=== PATIENT | female | born 1970 | race Caucasian/White ===

== ENCOUNTER 2021-06-30 17:05 | Emergency (ER) | payer OTHER ==
[2021-06-30] MEDS ORDERED: Cyclobenzaprine 10 MG TAB ONE (18:05)
[2021-06-30] MEDS ORDERED: Ketorolac Tromethamine 30 MG/ML VIAL ONE (18:05)
[2021-06-30] MEDS ORDERED: HYDROcodone/Acetaminophen 5/325 mg Tablet ONE (19:12)
[2021-06-30] MEDS ORDERED: Ondansetron ODT 4 MG TAB ONE (20:01)
== END 2021-06-30 19:49 | disposition home or self-care (01) ==
LOC: CSHERS 17:05
DX: M62.838 Other muscle spasm (principal); F17.210 Nicotine dependence, cigarettes, uncomplicated; V44.5XXA Car driver injured in collision with heavy transport vehicle or bus in traffic accident, initial encounter
CPT/HCPCS: 71046; 96372; J1885; Q0162